=== PATIENT | female | born 1970 | race Caucasian/White ===

== ENCOUNTER → 2017-02-06 | Outpatient (CLI) | payer OTHER | END | disposition home or self-care (01) | LOC: CFH 15:49 | PROVIDERS: ATTEND Obstetrics & Gynecology | DX: Z12.31 Encounter for screening mammogram for malignant neoplasm of breast (principal) | CPT/HCPCS: 77063; G0202 ==

== ENCOUNTER → 2019-02-26 | Outpatient (CLI) | payer OTHER | END | disposition home or self-care (01) | LOC: CFH 08:57 | PROVIDERS: ATTEND Obstetrics & Gynecology Gynecology | DX: Z12.31 Encounter for screening mammogram for malignant neoplasm of breast (principal) | CPT/HCPCS: 77063; 77067 ==

== ENCOUNTER 2019-04-11 09:08 | Day surgery (SDC) | payer OTHER ==
[~2019-04-11] VITALS: Ht 177.8 cm; Wt 84.0 kg
[2019-04-11 09:26] VITALS: BP 133/80
[2019-04-11] MEDS ORDERED: LACTATED RINGERS 1,000 ML IV SCH (09:26)
[2019-04-11] MEDS ORDERED: IBUP-1623 PO (09:56)
[2019-04-11] MEDS ORDERED: MULTIVITAMIN (09:56)
[2019-04-11] MEDS ORDERED: CA C1TAB60 PO (09:56)
[2019-04-11] MEDS ORDERED: FERR142T13 PO (09:56)
[2019-04-11] MEDS ORDERED: GLUCOSAMINE (09:56)
[2019-04-11] MEDS ORDERED: PLEASE ENTER ALLERGIES MC SCH (10:00)
[2019-04-11] MEDS ORDERED: PLEASE ENTER HEIGHT AND WEIGHT MC SCH (10:00)
[2019-04-11] MEDS ORDERED: SILVER NITRATE STICK TP ONE (10:34)
[2019-04-11] MEDS ORDERED: LIDOCAINE/PF 1%-EPI 1:200K, 30 ML ONE (10:34)
[2019-04-11 10:43] LABS: MICROSCOPIC AUTO
[2019-04-11 10:47] LABS: CULTURE INDICATED? NO
[2019-04-11] MEDS ORDERED: MIDAZOLAM 1 MG/ML, 2ML ONE (10:50)
[2019-04-11] MEDS ORDERED: FENTANYL PF 250 MCG/5ML ONE (10:50)
[2019-04-11] MEDS ORDERED: PROPOFOL 10 MG/ML, 20ML ONE (10:52)
[2019-04-11] MEDS ORDERED: SODIUM CHLORIDE 0.9% PF 10ML ONE (10:52)
[2019-04-11] MEDS ORDERED: CEFAZOLIN 1,000 MG ONE ×2 (10:52)
[2019-04-11] MEDS ORDERED: ONDANSETRON 2MG/ML, 2ML ONE (11:11)
[2019-04-11] MEDS ORDERED: DEXAMETHASONE 4 MG/ML, 1ML ONE ×3 (11:11)
[2019-04-11] MEDS ORDERED: LABETALOL 5MG/ML, 20ML IV PRN (11:30)
[2019-04-11] MEDS ORDERED: OXYcodone 5 MG/5 ML ORAL.SOL UDC PO PRN (11:30)
[2019-04-11] MEDS ORDERED: MORPHINE SULFATE 4 MG/ML, 1ML IVPush PRN (11:30)
[2019-04-11] MEDS ORDERED: ONDANSETRON 2MG/ML, 2ML IV PRN (11:30)
[2019-04-11] MEDS ORDERED: PROMETHAZINE 12.5 MG SUPP PR PRN (11:30)
[2019-04-11] MEDS ORDERED: HYDROmorphone 2 MG/ML, 1ML IVPush PRN (11:30)
[2019-04-11] MEDS ORDERED: PROMETHAZINE 25 MG/ML, 1ML IM PRN ×2 (11:30)
[2019-04-11] MEDS ORDERED: MEPERIDINE/PF 25MG/0.5ML IVPush PRN (11:30)
[2019-04-11] MEDS ORDERED: PROMETHAZINE 25 MG/ML, 1ML IV PRN (11:30)
[2019-04-11] MEDS ORDERED: PROMETHAZINE 25 MG SUPP PR PRN (11:30)
[2019-04-11] MEDS ORDERED: hydrALAzine 20 MG/ML, 1ML IV PRN (11:30)
[2019-04-11] MEDS ORDERED: HALOPERIDOL 5 MG/ML IV PRN (11:30)
[2019-04-11] MEDS ORDERED: ACETAMINOPHEN 325 MG TABLET PO PRN (11:30)
[2019-04-11] MEDS ORDERED: ONDANSETRON ODT 8 MG PO PRN (11:30)
[2019-04-11] MEDS ORDERED: KETOROLAC 30 MG/1 ML ONE (11:32)
[2019-04-11] MEDS ORDERED: ACETAMINOPHEN 650 MG/20.3 ML UDC ONE (12:19)
[2019-04-11] MEDS ORDERED: FENTANYL PF 100 MCG/2ML ONE (12:20)
[2019-04-11] MEDS ORDERED: OXYcodone 5 MG/5 ML ORAL.SOL UDC ONE (12:20)
[2019-04-11] MEDS: FENTANYL PF 100 MCG/2ML IV PRN ×2 (12:30→12:42)
== END 2019-04-11 14:25 | disposition home or self-care (01) ==
LOC: OUT 09:08
PROVIDERS: ATTEND Obstetrics & Gynecology Gynecology
DX: N84.0 Polyp of corpus uteri (principal); Z30.430 Encounter for insertion of intrauterine contraceptive device; E66.3 Overweight; Z79.3 Long term (current) use of hormonal contraceptives; Z98.890 Other specified postprocedural states
CPT/HCPCS: 58300; 58558; 81001; 81025; 88305; J0690; J1100; J1885; J2250; J2405; J2704; J3010; J3490; J7120; J7298

== ENCOUNTER → 2020-03-10 | Outpatient (CLI) | payer OTHER ==
[~2020-03-10] MED LIST: CA C1TAB60 PO; FERR142T13 PO; GLUCOSAMINE; IBUP-1623 PO; MULTIVITAMIN
== END | disposition home or self-care (01) ==
LOC: RAD 07:43
PROVIDERS: ATTEND Family Medicine
DX: K21.9 Gastro-esophageal reflux disease without esophagitis (principal); K44.9 Diaphragmatic hernia without obstruction or gangrene; R12 Heartburn; R05 Cough
CPT/HCPCS: 74240

== ENCOUNTER → 2020-05-04 | Outpatient (CLI) | payer OTHER | END | disposition home or self-care (01) | LOC: CFH 07:18 | PROVIDERS: ATTEND Obstetrics & Gynecology Gynecology | DX: Z12.31 Encounter for screening mammogram for malignant neoplasm of breast (principal) | CPT/HCPCS: 77063; 77067 ==

== ENCOUNTER → 2021-05-20 | Outpatient (CLI) | payer OTHER | END | disposition home or self-care (01) | LOC: CFH 12:45 | PROVIDERS: ATTEND Obstetrics & Gynecology Gynecology | DX: Z12.31 Encounter for screening mammogram for malignant neoplasm of breast (principal) | CPT/HCPCS: 77063; 77067 ==